=== PATIENT | female | born 1935 | race Two or more races ===

== ENCOUNTER 2018-08-09 10:23 | Outpatient (CLI) | payer OTHER ==
[~2018-08-09 10:23] MED LIST: GLUCOTROL10 MG
== END 2018-08-09 10:26 | disposition home or self-care (01) ==
LOC: NUCLEAR 10:23 → RAD 10:23 → NUCLEAR 10:26
DX: I11.9 Hypertensive heart disease without heart failure (principal); R06.02 Shortness of breath

== ENCOUNTER 2018-08-16 08:07 | Outpatient (CLI) | payer OTHER | END 2018-08-16 10:08 | disposition home or self-care (01) | LOC: NUCLEAR 08:07 | DX: I11.9 Hypertensive heart disease without heart failure (principal); M81.0 Age-related osteoporosis without current pathological fracture; I82.503 Chronic embolism and thrombosis of unspecified deep veins of lower extremity, bilateral ==

== ENCOUNTER 2019-08-30 11:53 | Emergency (ER) | payer OTHER ==
[~2019-08-30] VITALS: Ht 160 cm; Wt 64.4 kg
[2019-08-30] MEDS ORDERED: FORTAMET500 MG (12:32)
[2019-08-30] MEDS ORDERED: ATORVASTATIN CA10 MG (12:32)
[2019-08-30] MEDS ORDERED: MULTI-VITAMIN1 EACH (12:33)
[2019-08-30] MEDS ORDERED: ARICEPT10 MG (12:33)
== END 2019-08-30 15:00 | disposition home or self-care (01) ==
LOC: ER 11:53
DX: S01.122A Laceration with foreign body of left eyelid and periocular area, initial encounter (principal); W45.8XXA Other foreign body or object entering through skin, initial encounter; Y93.89 Activity, other specified; Y92.89 Other specified places as the place of occurrence of the external cause; Y99.8 Other external cause status

== ENCOUNTER 2019-08-30 15:17 | Outpatient (CLI) | payer OTHER ==
[~2019-08-30 15:17] MED LIST changes: +ARICEPT10 MG; +ATORVASTATIN CA10 MG; +FORTAMET500 MG; +MULTI-VITAMIN1 EACH
== END 2019-08-30 15:32 | disposition home or self-care (01) ==
LOC: MRI 15:17
DX: G30.8 Other Alzheimer's disease (principal)
CPT/HCPCS: 70551

== ENCOUNTER 2020-08-22 12:41 | Emergency (ER) | payer OTHER ==
[~2020-08-22] VITALS: Ht 149.9 cm; Wt 58.1 kg
[2020-08-22] MEDS ORDERED: MEDROLPACK PO (16:31)
[2020-08-22] MEDS ORDERED: ZITHROMAX200 MG PO (16:32)
== END 2020-08-22 22:31 | disposition home or self-care (01) ==
LOC: ER 12:41
DX: U07.1 COVID-19 (principal); R53.81 Other malaise

== ENCOUNTER 2021-08-15 16:10 | Emergency (ER) | payer OTHER ==
[~2021-08-15] VITALS: Ht 160 cm; Wt 56.7 kg
[~2021-08-15 16:10] MED LIST changes: +MEDROLPACK PO; +ZITHROMAX200 MG PO
== END 2021-08-15 20:12 | disposition home or self-care (01) ==
LOC: ER 16:10
DX: N39.0 Urinary tract infection, site not specified (principal); R10.13 Epigastric pain